=== PATIENT | female | born 1975 | race Caucasian/White ===

== ENCOUNTER 2022-03-14 21:46 | Emergency (ER) | payer BC ==
[~2022-03-14] VITALS: Ht 180.3 cm; Wt 90.7 kg
[2022-03-14] MEDS ORDERED: SODIUM CHLORIDE 0.9% 1000ML 1,000 ML IV ONE (22:15)
[2022-03-14] MEDS ORDERED: ACETAMINOPHEN 325 MG TAB PO ONE (22:15)
[2022-03-14 22:38] LABS: BASOPHILS % 0.2 % (0.0-1.0); EOSINOPHILS # (AUTO) 0.1 (0.0-0.4); EOSINOPHILS % 0.9 % (0.0-6.0); HEMATOCRIT 33.1 % (34.2-44.1); HEMOGLOBIN 10.7 g/dL (12.0-16.0); LYMPHOCYTES # (AUTO) 1.3 (1.0-3.2); LYMPHOCYTES % 15.1 % (18.0-39.1); MEAN CORPUSCULAR HEMOGLOBIN 28.9 pg (28-32); MEAN CORPUSCULAR HGB CONC 32.3 g/dL (31-35); MEAN CORPUSCULAR VOLUME 89.5 fL (81-99); MONOCYTES # (AUTO) 0.6 (0.2-0.8); NEUTROPHILS # (AUTO) 6.5 (2.1-6.9); NEUTROPHILS % 76.4 % (38.7-80.0); PLATELET COUNT 450 x10e3/uL (140-360); RED CELL DISTRIBUTION WIDTH 12.7 % (11.7-14.4)
[2022-03-14 22:44] LABS: CLARITY,URINE SL CLOUDY (CLEAR); COLOR,URINE YELLOW (YELLOW); KETONES,URINE >=160 (NEGATIVE); LEUKOCYTE ESTERASE ,URINE NEGATIVE (NEGATIVE); NITRITE,URINE NEGATIVE (NEGATIVE); PROTEIN,URINE DIPSTICK 1+ (NEGATIVE); URINE UROBILINOGEN 1 mg/dL (0.2 - 1)
[2022-03-14 22:55] LABS: AMYLASE 38 U/L (25-125); BACTERIA,URINE MODERATE /HPF; EPITHELIAL CELLS,URINE MANY /LPF; LIPASE 21 U/L (8-78); RBC,URINE 0-5 /HPF (0-5); WBC,URINE (MAN) 0-5 /HPF (0-5)
[2022-03-14 22:57] LABS: CARBON DIOXIDE 22 mmol/L (22-29); CHLORIDE 102 mmol/L (98-107); POTASSIUM 3.4 mmol/L (3.5-5.1); SODIUM 137 mmol/L (136-145)
[2022-03-14 22:58] LABS: ALANINE AMINOTRANSFERASE 20 IU/L (0-55); ALBUMIN 2.9 g/dL (3.5-5.0); ALBUMIN/GLOBULIN RATIO 0.7 (0.8-2.0); ALKALINE PHOSPHATASE 46 IU/L (40-150); ANION GAP 16.4 mmol/L (8-16); BLOOD UREA NITROGEN 7 mg/dL (7-26); BUN/CREATININE RATIO 11 (6-25); CALCIUM 8.2 mg/dL (8.4-10.2); CREATINE KINASE 33 IU/L (29-168); CREATININE, SERUM 0.66 mg/dL (0.57-1.11); EST GLOMERULAR FILTRATION RATE 96 ML/MIN (60-); GLUCOSE 84 mg/dL (74-118)
[2022-03-14 23:01] LABS: CREATINE KINASE MB < 0.10 ng/mL (0-5.0)
[2022-03-14] MEDS ORDERED: IOPAMIDOL 370 MG/ML 100 ML INFUS..BTL INJ ONE (23:36)
[2022-03-15 05:05] VITALS: BP 123/77
== END 2022-03-15 04:20 | disposition home or self-care (01) ==
LOC: ER 22:11
DX: G89.18 Other acute postprocedural pain (principal); R50.82 Postprocedural fever; R19.09 Other intra-abdominal and pelvic swelling, mass and lump; R42 Dizziness and giddiness; R10.84 Generalized abdominal pain; Z20.822 Contact with and (suspected) exposure to COVID-19; Z98.84 Bariatric surgery status; F32.A Depression, unspecified; K21.9 Gastro-esophageal reflux disease without esophagitis
CPT/HCPCS: 36415; 71045; 74177; 76830; 76856; 80053; 81001; 81025; 82150; 82550; 82553; 83605; 83690; 84484; 85025; 87040; 93005; 99284; J2543; J7030; Q9967; U0002

== ENCOUNTER 2022-06-24 12:38 | Emergency (ER) | payer BC ==
[~2022-06-24] VITALS: Ht 180.3 cm; Wt 79.4 kg
[2022-06-24] MEDS ORDERED: HYDROXYZINE HCL25 MG PO (13:08)
== END 2022-06-24 13:33 | disposition home or self-care (01) ==
LOC: ER 12:41
DX: R06.00 Dyspnea, unspecified (principal); K21.9 Gastro-esophageal reflux disease without esophagitis; F41.9 Anxiety disorder, unspecified; F32.A Depression, unspecified; Z98.84 Bariatric surgery status
CPT/HCPCS: 93005; 99282

== ENCOUNTER 2022-12-03 17:15 | Emergency (ER) | payer BC ==
[~2022-12-03] VITALS: Ht 180.3 cm; Wt 79.4 kg
[~2022-12-03 17:15] MED LIST: HYDROXYZINE HCL25 MG PO
[2022-12-03] MEDS ORDERED: SODIUM CHLORIDE FLUSH 10 ML SYR IV PRN (18:15)
[2022-12-03 18:23] LABS: INR 0.89; PARTIAL THROMBOPLASTIN TIME 25.8 seconds (23.8-35.5); PROTHROMBIN TIME 12.2 seconds (11.9-14.5)
[2022-12-03 18:30] LABS: BASOPHILS % 0.5 % (0.0-1.0); EOSINOPHILS # (AUTO) 0.2 (0.0-0.4); HEMATOCRIT 37.1 % (34.2-44.1); HEMOGLOBIN 11.2 g/dL (12.0-16.0); LYMPHOCYTES # (AUTO) 1.9 (1.0-3.2); LYMPHOCYTES % 23.2 % (18.0-39.1); MEAN CORPUSCULAR HEMOGLOBIN 28.4 pg (28-32); MEAN CORPUSCULAR HGB CONC 30.2 g/dL (31-35); MEAN CORPUSCULAR VOLUME 93.9 fL (81-99); MONOCYTES # (AUTO) 0.5 (0.2-0.8); MONOCYTES % 6.1 % (4.4-11.3); NEUTROPHILS # (AUTO) 5.6 (2.1-6.9); PLATELET COUNT 353 x10e3/uL (140-360); RED BLOOD COUNT 3.95 x10e6/uL (3.6-5.1); RED CELL DISTRIBUTION WIDTH 12.4 % (11.7-14.4)
[2022-12-03] MEDS ORDERED: Morphine 4mg INJECTION 4 MG/ML INJ IV ONE (18:30)
[2022-12-03] MEDS ORDERED: ONDANSETRON HCL INJ 2MG/ML 2ML 2 MG/ML VIAL IV STA (18:30)
[2022-12-03 18:31] LABS: ALBUMIN 3.3 g/dL (3.5-5.0); ALBUMIN/GLOBULIN RATIO 0.9 (0.8-2.0); ANION GAP 10.6 mmol/L (8-16); CALCIUM 8.4 mg/dL (8.4-10.2); CREATININE, SERUM 0.67 mg/dL (0.57-1.11); POTASSIUM 3.6 mmol/L (3.5-5.1)
[2022-12-03 18:45] LABS: PHENCYCLIDINE SCREEN,URINE NEGATIVE (NEGATIVE)
[2022-12-03 18:46] LABS: AMPHETAMINES SCREEN,URINE NEGATIVE (NEGATIVE); BENZODIAZEPINES SCREEN,URINE NEGATIVE (NEGATIVE); CLARITY,URINE CLEAR (CLEAR); COLOR,URINE YELLOW (YELLOW); LEUKOCYTE ESTERASE ,URINE NEGATIVE (NEGATIVE)
[2022-12-03 18:47] LABS: KETONES,URINE NEGATIVE (NEGATIVE); NITRITE,URINE NEGATIVE (NEGATIVE); PROTEIN,URINE DIPSTICK NEGATIVE (NEGATIVE); URINE UROBILINOGEN 0.2 mg/dL (0.2 - 1)
[2022-12-03] MEDS ORDERED: IOPAMIDOL 370 MG/ML 100 ML INFUS..BTL INJ ONE (18:48)
[2022-12-03] MEDS ORDERED: ONDANSETRON HCL INJ 2MG/ML 2ML 2 MG/ML VIAL ONE (18:50)
[2022-12-03] MEDS ORDERED: Morphine 4mg INJECTION 4 MG/ML INJ ONE (18:50)
[2022-12-03 18:56] LABS: BACTERIA,URINE FEW /HPF; EPITHELIAL CELLS,URINE FEW /LPF; RBC,URINE 0-5 /HPF (0-5); WBC,URINE (MAN) 0-5 /HPF (0-5)
[2022-12-03] MEDS ORDERED: DICYCLOMINE HCL20 MG PO (23:06)
[2022-12-03] MEDS ORDERED: PANTOPRAZOLE SO40 MG PO (23:06)
[2022-12-03] MEDS ORDERED: ONDANSETRON ODT4 MG PO (23:06)
[2022-12-03 23:27] VITALS: BP 131/62
== END 2022-12-03 23:23 | disposition home or self-care (01) ==
LOC: ER 17:20
DX: R10.13 Epigastric pain (principal); R11.0 Nausea; R19.09 Other intra-abdominal and pelvic swelling, mass and lump; N28.1 Cyst of kidney, acquired; R19.7 Diarrhea, unspecified; K21.9 Gastro-esophageal reflux disease without esophagitis; F41.9 Anxiety disorder, unspecified
CPT/HCPCS: 36415; 74177; 80053; 80307; 81001; 83690; 84702; 85025; 85610; 85730; 99284; J2270; J2405; Q9967